=== PATIENT | female | born 1945 | race Caucasian/White ===

== ENCOUNTER 2017-11-20 18:20 | Emergency (ER) | payer MEDICARE, OTHER ==
[~2017-11-20] VITALS: Ht 154.9 cm; Wt 63.0 kg
[~2017-11-20 18:20] MED LIST: LEXAPRO5 MG PO; LIPITOR10 MG PO; NAPROSYN500 MG PO; NORCO 325 MG-51 TAB PO
[2017-11-20] MEDS ORDERED: CEPHALEXIN500 M1 PO (18:43)
== END 2017-11-20 18:49 | disposition home or self-care (01) ==
LOC: ED 18:20
DX: S99.922A Unspecified injury of left foot, initial encounter (principal); Z23 Encounter for immunization; Z88.2 Allergy status to sulfonamides; Z79.899 Other long term (current) drug therapy; X58.XXXA Exposure to other specified factors, initial encounter; Y93.89 Activity, other specified; Y92.89 Other specified places as the place of occurrence of the external cause; Y99.8 Other external cause status